=== PATIENT | male | born 1965 | race Caucasian/White ===

== ENCOUNTER 2017-05-31 09:44 | Inpatient (IN) | payer MEDICAID ==
[~2017-05-31] VITALS: Ht 177.8 cm; Wt 72.6 kg
[~2017-05-31 09:44] MED LIST: METF10002 PO; NAPR500T PO
[2017-05-31] MEDS ORDERED: ONDANSETRON HCL 4MG/2ML VIAL IV STA (11:58)
[2017-05-31] MEDS ORDERED: SODIUM CHLORIDE 0.9% 1,000 ML IV ONE ×2 (11:58→16:51)
[2017-05-31] MEDS ORDERED: MORPHINE SULFATE 4 MG/ML CPJ (NOT FOR IM USE) IV STA ×2 (11:58→16:51)
[2017-05-31 12:25] LABS: BASOPHILS % 0.4 % (0.0-2.0); EOSINOPHILS % 0.2 % (0.0-5.0); HEMATOCRIT. 41.5 % (42.0-52.0); HEMOGLOBIN. 14.1 g/dL (14.0-18.0); LYMPHOCYTES % 11.1 % (20.0-50.0); MEAN CORPUSCULAR HEMOGLOBIN 30.4 pg (28.0-32.0); MEAN CORPUSCULAR VOLUME 89.3 fL (80.0-94.0); MEAN PLATELET VOLUME 7.7 fl (7.4-10.4); MONOCYTES % 6.2 % (2.0-8.0); NEUTROPHILS % 82.1 % (40.0-76.0); PLATELET 305 x1000/uL (130-400); RED BLOOD CELL COUNT 4.64 mill/uL (4.7-6.1); RED CELL DISTRIBUTION WIDTH 13.4 % (11.6-14.6)
[2017-05-31 12:29] LABS: CHLORIDE 102 mEq/L (98-107)
[2017-05-31 12:30] LABS: PROTHROMBIN TIME 10.8 sec (9.4-11.6)
[2017-05-31 12:35] LABS: CLARITY URINE CLEAR (CLEAR); COLOR URINE YELLOW (YELLOW); GLUCOSE URINE TRACE (NEGATIVE); KETONES URINE 3+ (NEGATIVE); LEUKOCYTE ESTERASE URINE NEGATIVE (NEGATIVE); NITRITE URINE NEGATIVE (NEGATIVE); OCCULT BLOOD URINE NEGATIVE (NEGATIVE); PROTEIN URINE NEGATIVE (NEGATIVE); SPECIFIC GRAVITY URINE 1.027 (1.005-1.030)
[2017-05-31 12:38] LABS: CARBON DIOXIDE 28 mEq/L (21-32)
[2017-05-31] MEDS ORDERED: CYCLOBENZAPRINE 10MG TABLET PO ONE (14:00)
[2017-05-31] MEDS ORDERED: SODIUM CHLORIDE 0.9% 10ML VIAL ONE (14:31)
[2017-05-31] MEDS ORDERED: IOHEXOL-300 100 ML BOTTLE ONE (14:31)
[2017-05-31] MEDS ORDERED: DIPHENHYDRAMINE 50MG/ML VIAL IV PRN (17:30)
[2017-05-31] MEDS ORDERED: LORAZEPAM 2MG/ML CPJ IV PRN (17:30)
[2017-05-31] MEDS ORDERED: ACETAMINOPHEN 650MG SUPP PR PRN (17:30)
[2017-05-31] MEDS ORDERED: ONDANSETRON HCL 4MG/2ML VIAL IV PRN ×3 (17:30→19:15)
[2017-05-31] MEDS ORDERED: IPRATROPIUM/ALBUTEROL 0.5-3(2.5)MG/3ML NEB INH PRN (17:30)
[2017-05-31] MEDS ORDERED: MORPHINE SULFATE 4 MG/ML CPJ (NOT FOR IM USE) IV PRN ×3 (17:36→18:15)
[2017-05-31] MEDS ORDERED: SODIUM CHLORIDE 0.9% 1,000 ML IV SCH (18:08)
[2017-05-31] MEDS ORDERED: PIPERACILLIN/TAZ 3.375G PREMIX 50 ML IV NR (18:08)
[2017-05-31] MEDS ORDERED: HYDROCODONE/ACETAMINOPHEN 5/325MG TABLET PO PRN ×2 (18:15)
[2017-05-31] MEDS ORDERED: BUPIVACAINE HCL 0.5% (5MG/ML) 50ML ONE (18:16)
[2017-05-31] MEDS ORDERED: SKIN ADHESIVE 0.7 GM EA TOP ONE (18:16)
[2017-05-31] MEDS ORDERED: ESMOLOL HCL 10MG/ML 10ML VIAL IV ONE (19:05)
[2017-05-31] MEDS ORDERED: PROPOFOL 200MG/20ML VIAL IV ONE (19:05)
[2017-05-31] MEDS ORDERED: ROCURONIUM BROMIDE 10MG/ML VIAL 5ML IV ONE (19:05)
[2017-05-31] MEDS ORDERED: DEXAMETHASONE 4MG/ML 1ML VIAL ONE (19:05)
[2017-05-31] MEDS ORDERED: MEPERIDINE HCL/PF 25MG/ML CPJ IV PRN (19:15)
[2017-05-31] MEDS ORDERED: LABETALOL HCL 20MG/4ML CARPUJECT IV PRN (19:15)
[2017-05-31] MEDS ORDERED: GLYCOPYRROLATE 0.2 MG/ML 2ML VIAL ONE (19:29)
[2017-05-31] MEDS ORDERED: NEOSTIGMINE METHYLSULFATE 1MG/ML 10 ML VIAL ONE (19:29)
[2017-05-31] MEDS: HYDROMORPHONE HCL/PF 2MG/ML CPJ IV PRN ×2 (20:20→20:27)
[2017-05-31 22:17] VITALS: BP 112/73
[2017-05-31] MEDS ORDERED: DEXTROSE 50% WATER 50ML SYRINGE IV PRN (22:30)
[2017-05-31 22:36] VITALS: BP 112/73
[2017-05-31] MEDS: DEXT 5%/0.45% NACL KCL 20MEQ/L 1,000 ML IV SCH (23:04)
[2017-05-31] MEDS: FAMOTIDINE 20MG/2ML VIAL IV SCH (23:04)
[2017-06-01] VITALS: BP 94/57
[2017-06-01] MEDS: PIPERACILLIN/TAZ 3.375G PREMIX 50 ML IV SCH ×2 (02:06→10:23)
[2017-06-01 04:00] VITALS: BP 85/45
[2017-06-01 05:00] VITALS: BP 85/45
[2017-06-01] MEDS: BLOOD SUGAR DIAGNOSTIC STRIP TEST SCH ×2 (06:13→13:08)
[2017-06-01] MEDS ORDERED: LACTATED RINGERS 500 ML IV SCH (06:30)
[2017-06-01 07:16] LABS: BASOPHILS % 0.1 % (0.0-2.0); HEMATOCRIT. 35.1 % (42.0-52.0); HEMOGLOBIN. 12.1 g/dL (14.0-18.0); LYMPHOCYTES % 9.3 % (20.0-50.0); MEAN CORPUSCULAR HEMOGLOBIN 30.9 pg (28.0-32.0); MEAN CORPUSCULAR VOLUME 89.5 fL (80.0-94.0); MONOCYTES % 4.4 % (2.0-8.0); NEUTROPHILS % 86.2 % (40.0-76.0); PLATELET 277 x1000/uL (130-400); RED BLOOD CELL COUNT 3.92 mill/uL (4.7-6.1); RED CELL DISTRIBUTION WIDTH 13.3 % (11.6-14.6)
[2017-06-01] MEDS: INSULIN LISPRO 100 UNITS/ML SUBCUT SCH ×2 (07:40→13:16)
[2017-06-01 08:19] LABS: CARBON DIOXIDE 26 mEq/L (21-32); CHLORIDE 104 mEq/L (98-107)
[2017-06-01] MEDS ORDERED: LACTATED RINGERS 500 ML IV NR (08:30)
[2017-06-01] MEDS ORDERED: ENOXAPARIN 40MG/0.4ML SYR SUBCUT SCH (09:00)
[2017-06-01] MEDS: FAMOTIDINE 20MG/2ML VIAL IV SCH (09:06)
[2017-06-01] MEDS: DEXT 5%/0.45% NACL KCL 20MEQ/L 1,000 ML IV SCH (10:24)
[2017-06-01 12:00] VITALS: BP 92/42
[2017-06-01 14:04] VITALS: BP 92/56
== END 2017-06-01 14:30 | disposition home or self-care (01) | DRG 225 ==
LOC: ER 10:23 → 8WST 17:23 → EDBEDREQ 17:31 → ENRESERV 20:30
PROVIDERS: ADMIT Internal Medicine; ATTEND Internal Medicine
PROC: 0DTJ4ZZ Resection of Appendix, Percutaneous Endoscopic Approach (ICD-10-PCS; principal; 2017-05-31 18:30)
DX: K35.80 Unspecified acute appendicitis (principal); E44.0 Moderate protein-calorie malnutrition; E11.65 Type 2 diabetes mellitus with hyperglycemia; E86.1 Hypovolemia
CPT/HCPCS: 36415; 74177; 76705; 80053; 81001; 82962; 83036; 83690; 85025; 85610; 88304; 93005; 99285; A4216; J1100; J1170; J1650; J1815; J2175; J2270; J2405; J2543; J2704; J2710; J3490; J7030; J7120; Q9967

== ENCOUNTER 2018-07-26 03:36 | Inpatient (IN) | payer MEDICAID, OTHER ==
[~2018-07-26] VITALS: Ht 172.7 cm; Wt 67.6 kg
[~2018-07-26 03:36] MED LIST changes: +METF-416 PO; -METF10002 PO; +NAPR-1176 PO; -NAPR500T PO
[2018-07-26 04:53] LABS: BASOPHILS % 0.8 % (0.0-2.0); EOSINOPHILS % 3.2 % (0.0-5.0); HEMATOCRIT. 40.8 % (42.0-52.0); LYMPHOCYTES % 16.4 % (20.0-50.0); MEAN CORPUSCULAR HEMOGLOBIN 31.3 pg (28.0-32.0); MEAN CORPUSCULAR VOLUME 91.5 fL (80.0-94.0); MEAN PLATELET VOLUME 8.1 fl (7.4-10.4); MONOCYTES % 12.1 % (2.0-8.0); NEUTROPHILS % 67.5 % (40.0-76.0); PLATELET 327 x1000/uL (130-400); RED BLOOD CELL COUNT 4.46 mill/uL (4.7-6.1); RED CELL DISTRIBUTION WIDTH 13.9 % (11.6-14.6)
[2018-07-26 05:00] LABS: CHLORIDE 102 mEq/L (98-107)
[2018-07-26] MEDS ORDERED: ACETAMINOPHEN 325MG TABLET PO ONE (06:30)
[2018-07-26] MEDS ORDERED: SODIUM CHLORIDE 0.9% 1,000 ML IV ONE (07:03)
[2018-07-26] MEDS ORDERED: KETOROLAC 30MG/ML VIAL IV STA (07:03)
[2018-07-26] MEDS ORDERED: HYDROCODONE/ACETAMINOPHEN 5/325MG TABLET PO STA (08:41)
[2018-07-26] MEDS ORDERED: ONDANSETRON HCL 4MG/2ML INJ IV PRN (09:00)
[2018-07-26] MEDS ORDERED: ACETAMINOPHEN 325MG TABLET PO PRN (09:00)
[2018-07-26] MEDS ORDERED: ACETAMINOPHEN 650MG/20.3ML UDC GT PRN (09:00)
[2018-07-26] MEDS ORDERED: IBUPROFEN 600MG TABLET PO PRN (09:00)
[2018-07-26] MEDS ORDERED: METOPROLOL TARTRATE 25MG TABLET PO SCH (09:00)
[2018-07-26] MEDS ORDERED: ACETAMINOPHEN 650MG SUPP PR PRN (09:00)
[2018-07-26] MEDS: LORAZEPAM 1MG TABLET PO PRN (13:23)
[2018-07-26 23:00] VITALS: BP 102/67
[2018-07-26 23:32] VITALS: BP 113/78
[2018-07-27 03:53] LABS: CLARITY URINE CLEAR (CLEAR); COLOR URINE YELLOW (YELLOW); KETONES URINE NEGATIVE (NEGATIVE); LEUKOCYTE ESTERASE URINE NEGATIVE (NEGATIVE); NITRITE URINE NEGATIVE (NEGATIVE); OCCULT BLOOD URINE NEGATIVE (NEGATIVE); PH URINE 6.5 (4.5-8.0); PROTEIN URINE NEGATIVE (NEGATIVE); SPECIFIC GRAVITY URINE 1.035 (1.005-1.030)
[2018-07-27 04:05] LABS: *AMPHETAMINES SCREEN URINE NEGATIVE (NEGATIVE); *BARBITURATES SCREEN URINE NEGATIVE (NEGATIVE); *BENZODIAZEPINES SCREEN URINE NEGATIVE (NEGATIVE); *COCAINE SCREEN URINE PRESUMTIVE POSITIVE (NEGATIVE); CANNABINOID URINE SCREEN NEGATIVE (NEGATIVE); METHADONE URINE SCREEN NEGATIVE (NEGATIVE); OPIATES URINE SCREEN PRESUMTIVE POSITIVE (NEGATIVE); PHENCYCLIDINE URINE SCREEN NEGATIVE (NEGATIVE)
[2018-07-27] MEDS ORDERED: DEXTROSE 50% WATER 50ML SYRINGE IV PRN ×2 (05:15→18:45)
[2018-07-27] MEDS: BLOOD SUGAR DIAGNOSTIC STRIP TEST SCH ×4 (06:22→20:44)
[2018-07-27 06:28] VITALS: BP 117/77
[2018-07-27] MEDS: HYDROCODONE/ACETAMINOPHEN 10/325MG TABLET PO PRN ×2 (06:28→13:22)
[2018-07-27 07:43] LABS: BASOPHILS % 0.5 % (0.0-2.0); EOSINOPHILS % 4.1 % (0.0-5.0); HEMATOCRIT. 38.9 % (42.0-52.0); HEMOGLOBIN. 13.3 g/dL (14.0-18.0); LYMPHOCYTES % 13.2 % (20.0-50.0); MEAN CORPUSCULAR VOLUME 90.9 fL (80.0-94.0); MEAN PLATELET VOLUME 8.2 fl (7.4-10.4); MONOCYTES % 12.5 % (2.0-8.0); NEUTROPHILS % 69.7 % (40.0-76.0); PLATELET 355 x1000/uL (130-400); RED BLOOD CELL COUNT 4.28 mill/uL (4.7-6.1); RED CELL DISTRIBUTION WIDTH 13.7 % (11.6-14.6)
[2018-07-27 07:52] LABS: CHLORIDE 102 mEq/L (98-107)
[2018-07-27 08:00] VITALS: BP 120/64
[2018-07-27 08:42] LABS: CREATINE KINASE 32 IU/L (39-308); HDL CHOLESTEROL 37 mg/dL (40-59); LDL CHOLESTEROL 57 mg/dL (5-100); PHOSPHORUS 3.3 mg/dL (2.5-4.9); T4 FREE 1.11 ng/dL (0.76-1.46)
[2018-07-27] MEDS: LOSARTAN POTASSIUM 25 MG TABLET PO SCH ×2 (09:00→10:20)
[2018-07-27] MEDS ORDERED: BISACODYL 10MG SUPP PR PRN (10:00)
[2018-07-27] MEDS ORDERED: BISACODYL 5MG TABLET PO PRN (10:00)
[2018-07-27] MEDS: LORAZEPAM 1MG TABLET PO PRN ×2 (10:20→18:41)
[2018-07-27] MEDS: INSULIN LISPRO 100 UNITS/ML SUBCUT SCH ×4 (10:23→20:44)
[2018-07-27] MEDS ORDERED: BISACODYL 10MG SUPP PR NR (11:45)
[2018-07-27 12:00] VITALS: BP 114/82
[2018-07-27 12:08] LABS: AMYLASE 51 IU/L (25-115)
[2018-07-27] MEDS: FLUTICASONE PROPIONATE 50MCG/SPRAY BOTTLE BOTHNSTRLS SCH ×2 (13:20→20:41)
[2018-07-27 16:00] VITALS: BP 108/72
[2018-07-27] MEDS: HYDROCODONE/ACETAMINOPHEN 5/325MG TABLET PO PRN (17:50)
[2018-07-27 20:45] VITALS: BP 110/69
[2018-07-28] MEDS: HYDROCODONE/ACETAMINOPHEN 10/325MG TABLET PO PRN ×2 (03:17→20:48)
[2018-07-28 03:18] VITALS: BP 117/74
[2018-07-28] MEDS: PANTOPRAZOLE 40MG DR TABLET PO SCH (06:20)
[2018-07-28] MEDS: BLOOD SUGAR DIAGNOSTIC STRIP TEST SCH ×4 (06:20→20:42)
[2018-07-28 08:16] VITALS: BP 87/56
[2018-07-28] MEDS: LOSARTAN POTASSIUM 25 MG TABLET PO SCH (08:38)
[2018-07-28] MEDS: INSULIN LISPRO 100 UNITS/ML SUBCUT SCH ×4 (08:45→20:42)
[2018-07-28] MEDS: METFORMIN HCL 500MG TABLET PO SCH ×2 (08:56→17:05)
[2018-07-28] MEDS: HYDROCODONE/ACETAMINOPHEN 5/325MG TABLET PO PRN (08:56)
[2018-07-28] MEDS: FLUTICASONE PROPIONATE 50MCG/SPRAY BOTTLE BOTHNSTRLS SCH ×2 (08:57→20:36)
[2018-07-28] MEDS: GLIMEPIRIDE 1MG TABLET PO SCH ×2 (08:57→17:05)
[2018-07-28] MEDS: DOCUSATE SODIUM 250MG CAPSULE PO SCH (09:04)
[2018-07-28 12:06] VITALS: BP 100/74
[2018-07-28] MEDS: LORAZEPAM 1MG TABLET PO PRN ×2 (14:20→20:35)
[2018-07-28 16:02] VITALS: BP 84/53
[2018-07-28 20:00] VITALS: BP 107/74
[2018-07-28] MEDS: AMOXICILLIN/POTASSIUM CLAVULANATE 875/125MG TAB PO SCH (20:35)
[2018-07-29] MEDS: PANTOPRAZOLE 40MG DR TABLET PO SCH (07:11)
[2018-07-29] MEDS: BLOOD SUGAR DIAGNOSTIC STRIP TEST SCH ×3 (07:12→11:28)
[2018-07-29 07:15] VITALS: BP 105/71
[2018-07-29 07:20] VITALS: BP 105/71
[2018-07-29] MEDS: HYDROCODONE/ACETAMINOPHEN 10/325MG TABLET PO PRN (07:20)
[2018-07-29] MEDS: AMOXICILLIN/POTASSIUM CLAVULANATE 875/125MG TAB PO SCH (08:45)
[2018-07-29] MEDS: DOCUSATE SODIUM 250MG CAPSULE PO SCH (08:45)
[2018-07-29] MEDS: METFORMIN HCL 500MG TABLET PO SCH (08:45)
[2018-07-29] MEDS: GLIMEPIRIDE 1MG TABLET PO SCH (08:46)
[2018-07-29] MEDS: FLUTICASONE PROPIONATE 50MCG/SPRAY BOTTLE BOTHNSTRLS SCH (08:47)
[2018-07-29] MEDS: INSULIN LISPRO 100 UNITS/ML SUBCUT SCH ×2 (08:47→11:27)
[2018-07-29] MEDS: LOSARTAN POTASSIUM 25 MG TABLET PO SCH (09:00)
[2018-07-29] MEDS ORDERED: AMOX1TAB16 PO (09:41)
[2018-07-29] MEDS ORDERED: PANT40TA4 PO (09:41)
[2018-07-29] MEDS ORDERED: AMA1 PO (09:41)
[2018-07-29] MEDS ORDERED: METF500T PO (09:41)
== END 2018-07-29 11:57 | disposition home or self-care (01) | DRG 816 ==
LOC: ER 03:36 → 6WST 08:52 → ENRESERV 21:44 → 6WST 07-27 01:24
PROVIDERS: ADMIT Internal Medicine; ATTEND Internal Medicine
DX: T40.5X1A Poisoning by cocaine, accidental (unintentional), initial encounter (principal); I42.9 Cardiomyopathy, unspecified; E11.65 Type 2 diabetes mellitus with hyperglycemia; I11.0 Hypertensive heart disease with heart failure; I50.9 Heart failure, unspecified; K56.7 Ileus, unspecified; B96.89 Other specified bacterial agents as the cause of diseases classified elsewhere; J01.80 Other acute sinusitis; F14.10 Cocaine abuse, uncomplicated; F41.9 Anxiety disorder, unspecified; K59.00 Constipation, unspecified; J00 Acute nasopharyngitis [common cold]; Z90.49 Acquired absence of other specified parts of digestive tract; Z91.19 Patient's noncompliance with other medical treatment and regimen; Z79.84 Long term (current) use of oral hypoglycemic drugs; Y92.89 Other specified places as the place of occurrence of the external cause; M94.0 Chondrocostal junction syndrome [Tietze]
CPT/HCPCS: 36415; 71045; 80061; 80305; 82150; 82550; 82553; 82962; 83036; 83735; 83880; 84100; 84439; 84443; 84481; 84484; 93005; 93970; 96361; 96374; 99285; G0482; J1815; J1885; J7030